=== PATIENT | female | born 1930 | race Caucasian/White ===

== ENCOUNTER → 2016-10-17 | Outpatient (CLI) | payer MEDICARE, OTHER | END | disposition home or self-care (01) | LOC: RADMN 16:07 | PROVIDERS: ATTEND Legal Medicine | DX: J18.9 Pneumonia, unspecified organism (principal); I51.7 Cardiomegaly; R91.8 Other nonspecific abnormal finding of lung field; J90 Pleural effusion, not elsewhere classified; I70.0 Atherosclerosis of aorta; Z95.0 Presence of cardiac pacemaker; Z95.1 Presence of aortocoronary bypass graft | CPT/HCPCS: 71020 ==

== ENCOUNTER → 2016-10-29 | Outpatient (CLI) | payer MEDICARE, OTHER | END | disposition home or self-care (01) | LOC: RADPV 10:51 | PROVIDERS: ATTEND Legal Medicine | DX: J18.9 Pneumonia, unspecified organism (principal); J98.11 Atelectasis; I51.7 Cardiomegaly; I70.0 Atherosclerosis of aorta; Z95.0 Presence of cardiac pacemaker; Z95.1 Presence of aortocoronary bypass graft | CPT/HCPCS: 71020 ==

== ENCOUNTER 2017-05-26 14:02 | Emergency (ER) | payer MEDICARE, OTHER ==
[~2017-05-26] VITALS: Ht 152.4 cm; Wt 50.5 kg
[2017-05-26] MEDS ORDERED: PHEN32.43 PO (14:26)
[2017-05-26] MEDS ORDERED: ACET-66 PO (14:26)
[2017-05-26] MEDS ORDERED: BUSP10TA23 PO (14:26)
[2017-05-26] MEDS ORDERED: ASPI81 PO (14:26)
[2017-05-26] MEDS ORDERED: CHOL200016 PO (14:26)
[2017-05-26] MEDS ORDERED: LEVO88TA4 PO (14:26)
[2017-05-26] MEDS ORDERED: ZOLP10TA7 PO (14:26)
[2017-05-26] MEDS ORDERED: ATOR40TA28 PO (14:26)
[2017-05-26] MEDS ORDERED: CALC-1038 PO (14:26)
[2017-05-26] MEDS ORDERED: OMEP20 PO (14:26)
[2017-05-26 14:48] VITALS: BP 151/72
[2017-05-26 14:49] LABS: APPEARANCE,URINE CLOUDY (CLEAR); GLUCOSE, URINE (UA) NEGATIVE (NEGATIVE); KETONES,URINE NEGATIVE (NEGATIVE); LEUKOCYTE ESTERASE ,URINE LARGE (NEGATIVE); OCCULT BLOOD,URINE MODERATE (NEGATIVE); PH,URINE 6.5 (5.0-8.0); PROTEIN,URINE NEGATIVE (NEGATIVE)
[2017-05-26 14:51] LABS: ADD UA MICROSCOPIC YES
[2017-05-26 14:52] LABS: WBC,URINE 51-100 /HPF (0-5)
[2017-05-26 14:53] LABS: RBC,URINE 0-2 /HPF (0-2); SQUAMOUS EPITHELIAL CELL,UR Rare /LPF (None Seen)
[2017-05-26] MEDS ORDERED: LEVOFLOXACIN 500 MG TABLET PO ONE (15:15)
== END 2017-05-26 15:49 | disposition home or self-care (01) ==
LOC: EMS 14:03
DX: N39.0 Urinary tract infection, site not specified (principal); K21.9 Gastro-esophageal reflux disease without esophagitis; E78.00 Pure hypercholesterolemia, unspecified; E03.9 Hypothyroidism, unspecified; I48.91 Unspecified atrial fibrillation; Z95.0 Presence of cardiac pacemaker; Z79.82 Long term (current) use of aspirin
CPT/HCPCS: 87086; 99284

== ENCOUNTER → 2017-09-05 | Outpatient (CLI) | payer MEDICARE, OTHER ==
[~2017-09-05] MED LIST: ACET-66 PO; ASPI81 PO; ATOR40TA28 PO; BUSP10TA23 PO; CALC-1038 PO; CHOL200016 PO; LEVO88TA4 PO; OMEP20 PO; PHEN32.43 PO; ZOLP10TA7 PO
== END | disposition home or self-care (01) ==
LOC: RADPV 08:33
PROVIDERS: ATTEND Legal Medicine
DX: R91.8 Other nonspecific abnormal finding of lung field (principal); I70.0 Atherosclerosis of aorta; I51.7 Cardiomegaly
CPT/HCPCS: 71046

== ENCOUNTER 2018-08-17 10:00 | Emergency (ER) | payer MEDICARE, OTHER ==
[~2018-08-17] VITALS: Ht 149.9 cm; Wt 49.1 kg
[~2018-08-17 10:00] MED LIST changes: -CHOL200016 PO; +CHOL200059 PO
[2018-08-17 10:32] LABS: BASOPHILS % (AUTO) 0.3 % (0.0-2.0); EOSINOPHILS % (AUTO) 0.2 % (1.0-6.0); HEMATOCRIT 40.4 % (36-46); HEMOGLOBIN 13.2 g/dL (12.0-16.0); LYMPHOCYTES # (AUTO) 0.9 K/uL (1.0-4.8); LYMPHOCYTES % (AUTO) 13.9 % (22.0-44.0); MEAN CORPUSCULAR HEMOGLOBIN 31.9 pg (26.0-34.0); MEAN CORPUSCULAR HGB CONC 32.8 G/dL (31.0-37.0); MEAN CORPUSCULAR VOLUME 97 fL (80-100); MONOCYTES # (AUTO) 0.4 K/uL (0.1-1.0); MONOCYTES % (AUTO) 6.7 % (2.0-9.0); NEUTROPHILS % (AUTO) 78.9 % (40.0-70.0); PLATELET COUNT (AUTO) 173 K/uL (150-450); RED BLOOD CELL COUNT(AUTO) 4.16 MIL/uL (4.00-5.20); RED CELL DISTRIBUTION WIDTH 12.7 % (11.5-14.5)
[2018-08-17 10:44] LABS: PROTHROMBIN TIME 10.3 SEC (9.4-11.6)
[2018-08-17 10:48] LABS: ANION GAP 7 mmol/L (8-16); CALCIUM, TOTAL 9.8 mg/dL (8.8-10.5); CARBON DIOXIDE 30 mmol/L (22-29); CHLORIDE 100 mmol/L (98-107); CREATININE 0.59 mg/dL (0.60-1.30); GLOMERULAR FILTR. RATE CALC > 60 mL/min (>60); GLUCOSE,RANDOM 100 mg/dL (70-110); POTASSIUM 3.7 mmol/L (3.5-5.1); SODIUM SERUM 137 mmol/L (136-145); UREA NITROGEN, BLOOD 17 mg/dL (7-18)
[2018-08-17 10:50] LABS: LACTIC ACID 0.9 mmol/L (0.4-2.0)
[2018-08-17 10:51] LABS: B-TYPE NATRIURETIC PEPTIDE 139 pg/mL (0-100)
[2018-08-17 10:57] LABS: ALANINE AMINOTRANSFERASE 33 U/L (12-78); ALBUMIN 3.9 g/dL (3.4-5.0); ALKALINE PHOSPHATASE 108 U/L (46-116); ASPARTATE AMINOTRANSFERASE 29 U/L (15-37); BILIRUBIN,TOTAL 0.3 mg/dL (0.1-1.0); LIPASE 243 U/L (73-393); TOTAL PROTEIN, SERUM 7.3 g/dL (6.4-8.2)
[2018-08-17 10:58] LABS: APPEARANCE,URINE CLEAR (CLEAR); BILIRUBIN,URINE NEGATIVE (NEGATIVE); GLUCOSE, URINE (UA) NEGATIVE (NEGATIVE); KETONES,URINE NEGATIVE (NEGATIVE); LEUKOCYTE ESTERASE ,URINE MODERATE (NEGATIVE); NITRATE,URINE NEGATIVE (NEGATIVE); OCCULT BLOOD,URINE MODERATE (NEGATIVE); PH,URINE 7.5 (5.0-8.0); PROTEIN,URINE NEGATIVE (NEGATIVE); UROBILINOGEN,URINE 0.2 mg/dL (<=1.0)
[2018-08-17 11:17] LABS: BACTERIA,URINE Few /HPF (None Seen); RBC,URINE 0-2 /HPF (0-2); SQUAMOUS EPITHELIAL CELL,UR Few /LPF (None Seen); WBC,URINE 26-50 /HPF (0-5)
[2018-08-17] MEDS ORDERED: CEPHALEXIN MONOHYDRATE 500 MG CAPSULE PO ONE (11:30)
[2018-08-17 12:00] VITALS: BP 142/74
== END 2018-08-17 12:19 | disposition home or self-care (01) ==
LOC: EMS 10:01
DX: N39.0 Urinary tract infection, site not specified (principal); E78.00 Pure hypercholesterolemia, unspecified; E03.9 Hypothyroidism, unspecified; I48.91 Unspecified atrial fibrillation; K21.9 Gastro-esophageal reflux disease without esophagitis; M19.90 Unspecified osteoarthritis, unspecified site; Z85.828 Personal history of other malignant neoplasm of skin; Z90.49 Acquired absence of other specified parts of digestive tract; Z95.0 Presence of cardiac pacemaker; Z98.890 Other specified postprocedural states; Z79.899 Other long term (current) drug therapy; Z79.82 Long term (current) use of aspirin
CPT/HCPCS: 83605; 87086; 93005